=== PATIENT | female | born 1980 | race Caucasian/White ===

== ENCOUNTER 2020-11-26 21:54 | Emergency (ER) | payer SELFPAY ==
[2020-11-26 22:04] VITALS: BP 132/87; PULSE 82; RESP 20; TEMP 36.6; O2SAT 100; BMI 35.5
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
--- NOTE | 2020-11-26 22:06 | ECG_ITS ---
[facility] Test Date: 2020-11-26 Pat Name: Caroline Russell Department: Room: Gender: Female [employer]er: : 1980 Requested By: Maciel Pardo Order Number: [id number] Sim MD: Ronnie Henry M.D. Measurements Intervals [place] Rate: 80 P: 49 IL: 140 QRS: 41 QRSD: 117 T: 64 QT: 386 QTc: 448 Interpretive Statements SINUS RHYTHM LOW QRS VOLTAGE IN PRECORDIAL LEADS [QRS DEFLECTION < 1.0 mV IN CHEST LEADS] MODERATE INTRAVENTRICULAR CONDUCTION DELAY [110+ ms QRS DURATION] Compared to ECG 05/02/2017 09:38:28 Low QRS voltage now present Intraventricular conduction delay now present Electronically Signed On 11-26-2020 23:57:15 CDT by Ronnie Henry M.D. [id number]
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
[2020-11-26 22:35] VITALS: RESP 16
[2020-11-26] MEDS: HYDROmorphone 1 mg/mL INJ 1 mL 0.5 MG IVP (22:35)
[2020-11-26 22:36] LABS: Basophils # 0.1 10^3/uL (0.0-0.1); Basophils % 0.4 %; Eosinophils % 0.1 %; Hematocrit 50.6 % (37.0-47.0); Hemoglobin 16.1 g/dL (11.5-15.3); Lymphocytes # 1.2 10^3/uL (0.8-4.8); Lymphocytes % 6.6 %; Mean Corpuscular HGB Conc 31.8 g/dL (30.0-36.0); Mean Corpuscular Hemoglobin 30.7 pg (28.0-34.0); Mean Corpuscular Volume 96.6 fL (81-99); Mean Platelet Volume 10.4 fL (7.4-10.4); Monocytes # 0.6 10^3/uL (0.2-0.9); Monocytes % 3.4 %; Neutrophils # 16.52 10^3/uL (1.8-7.7); Neutrophils % 88.4 %; Nucleated Red Blood Cells % 0 %; Platelet Count 359 10^3/cmm (130-400); Red Blood Count 5.24 10^6/uL (4.1-5.3); Red Cell Distribution Width 12.3 % (12.1-15.1); White Blood Count 18.7 10^3/uL (4.0-10.0)
[2020-11-26] MEDS: sodium chloride 0.9% 1,000 ML 999 ML IV (22:39)
[2020-11-26 22:58] LABS: Troponin(5th) Baseline 6 ng/L (0-10)
[2020-11-26 22:59] LABS: Albumin Level 5.1 g/dL (3.5-5.2); Blood Urea Nitrogen 15 mg/dL (6-20); Calcium 9.3 mg/dL (8.5-10.5); Chloride 102 mmol/L (98-107); Glomerular Filtration Rate 92.2 mL/min (90-130); Glucose 102 mg/dL (65-115); Osmolality Calculated 293 mOsm/kg (285-295); Sodium 141 mmol/L (136-145); Total Bilirubin 0.3 mg/dL (0.15-1.2); Total Protein 8.1 g/dL (6.6-8.7)
[2020-11-26 23:15] LABS: Alkaline Phosphatase 96 IU/L (35-105)
[2020-11-26 23:18] LABS: Potassium 4.3 mmol/L (3.5-5.1)
[2020-11-26 23:19] LABS: Alanine Aminotransferase 32 U/L (0-33); Alcohol Level 135 mg/dL (0-10); Anion Gap 24.3 (5-19); Aspartate Amino Transferase 47 U/L (0-32); Carbon Dioxide 19 mmol/L (22-29)
[2020-11-26] MEDS: iohexol 300 mg/mL 100 mL Btl IV (23:25)
[2020-11-27 00:18] VITALS: RESP 22
[2020-11-27] MEDS: HYDROmorphone 1 mg/mL INJ 1 mL IVP (00:18)
[2020-11-27 00:20] LABS: Add Urine Microscopic? YES; Bilirubin Urine Neg (Negative); Blood Urine 2+ (Negative); Glucose Urine UA Norm (Normal); Ketones Urine Negative (Negative); Leukocyte Esterase Urine Negative (Negative); Nitrate Urine Negative (Negative); Protein Urine Neg (Negative); Urine Appearance Clear (CLEAR); Urine Color Yellow (Yellow); Urobilinogen Urine Norm (Negative); pH Urine 6.5 (5-7)
[2020-11-27 00:21] LABS: Add Urine Culture? No; Squamous Epithelial Cell Urine 0-4 /hpf (0-5); WBC Urine 0-4 /hpf (0-5)
[2020-11-27 00:25] LABS: Amphetamines Screen Urine Negative (Negative); Barbiturates Screen Urine Negative (Negative); Benzodiazepines Screen Urine Negative (Negative); Cocaine Screen Urine Negative (Negative); Opiate Screen Urine Positive (Negative); PCP Screen Urine Negative (Negative); THC Screen Urine Negative (Negative)
[2020-11-27 00:55] VITALS: BP 140/93; PULSE 88; RESP 20; O2SAT 94
== END 2020-11-27 01:01 | disposition home or self-care (01) ==
PROVIDERS: Family Medicine; Emergency Provider Emergency Medicine
DX: Z04.1 Encounter for examination and observation following transport accident (principal)
CPT/HCPCS: 70450; 70486; 71045; 71260; 72125; 72128; 72131; 74177; 80053; 80306; 80307; 81001; 84484; 85025; 93005; 96361; 96374; 96376; 99284; J1170; J7030; Q9967

== ENCOUNTER → 2020-12-16 10:27 | Outpatient (BNVA) | payer SELFPAY | PROVIDERS: Referring Provider Nurse Practitioner Family; Visit Provider Orthopaedic Surgery | DX: M25.511 Pain in right shoulder (principal) | CPT/HCPCS: 71130; 73030 ==